=== PATIENT | female | born 1990 | race Caucasian/White ===

== ENCOUNTER → 2017-02-02 | Outpatient (CLI) | payer OTHER ==
[~2017-02-02] MED LIST: E-Z-GAS II EFFERVESCENT PACKET (SODIUM BICARB./CITRIC ACID/SIMETHICONE) As Ordered ONE; E-Z-HD 98% w/w 340GM SUSP BTL As Ordered ONE; E-Z-PAQUE 96% w/w SUSP 176GM BTL As Ordered ONE
--- NOTE | 2017-02-02 16:50 | REP ---
UPPER GI, AIR CONTRAST: The procedure was performed under the direct supervision of Dr. Chin. The images were reviewed with Dr. Chin. The media sales representative film shows no organomegaly or pathological masses. The intestinal gas pattern is nonspecific. There is an IUD in place. Liquid barium and gas-producing granules were given in the erect position as well as liquid barium in the prone oblique position in order to perform a double-contrast upper GI examination. The oral and pharyngeal stage of deglutition are unremarkable. Esophageal transport is prompt and efficient and there is no esophagitis, stricture, mucosal ring, or hiatal hernia. There is mild gastroesophageal reflux demonstrated to below the level of the mahesh. The stomach dillon are normally outlined. The rugal folds are smooth and regular. There is no gastritis, neoplasm, or ulcer disease. The duodenal dillon are normally outlined. The mucosal folds are smooth and regular. There is no duodenitis, pancreatitis, peptic ulcer disease, or neoplasm. The visualized portion of the proximal small bowel appears normal in course and caliber. IMPRESSION: There is mild gastroesophageal reflux demonstrated to below the level of the mahesh, otherwise unremarkable double contrast upper GI examination. 1 minute and 12 seconds of fluoroscopic time was utilized for this procedure. Reviewed by EVGENY Saucedo 02/03/2017 03:18 PEdited and Signed by Pedro Chin MD 02/03/2017 03:53 P
== END ==
LOC: M RAD 09:05
PROVIDERS: ATTEND Internal Medicine Gastroenterology
DX: R14.2 Eructation (principal); K21.9 Gastro-esophageal reflux disease without esophagitis